=== PATIENT | female | born 2000 ===

== ENCOUNTER 2023-03-01 13:06 | Outpatient (REF) | payer OTHER, SELFPAY ==
[2023-03-01 13:57] LABS: Hematocrit 35.5 % (37.0-47.0); Hemoglobin 11.5 g/dl (12.0-16.0); Mean Corpuscular HGB Conc 32.4 g/dl (31.0-35.0); Mean Corpuscular Hemoglobin 25.2 pg (27.0-33.0); Mean Corpuscular Volume 77.7 fL (80.0-98.0); Mean Platelet Volume 9.6 fL (9.4-12.3); Platelet Count 439 X10*3/uL (160-400); Red Blood Count 4.57 X10*6/uL (4.20-5.50); Red Cell Distribution Width 13.4 % (11.0-16.0); White Blood Count 20.7 X10*3/uL (4.8-10.8)
[2023-03-01 14:51] LABS: Ferritin 20 ng/mL (10-122)
[2023-03-01 14:54] LABS: Anion Gap 16 (12-20); Erythrocyte Sedimentation Rate 18 MM/HR (0-20)
[2023-03-01 14:55] LABS: Folate 8.4 ng/mL (> or = 4.0); Vitamin B12 484 pg/mL (200-900)
[2023-03-01 15:00] LABS: Alanine Aminotransferase 27 U/L (0-31); Albumin Level 4.3 g/dL (3.5-5.0); Alkaline Phosphatase 62 U/L (39-117); Aspartate Amino Transferase 24 U/L (5-31); Bilirubin Total 0.3 mg/dL (0.0-1.0); Blood Urea Nitrogen 15 mg/dL (9-16); C Reactive Protein < 0.10 mg/dL (< or = 0.50); Calcium 9.9 mg/dL (8.4-10.2); Carbon Dioxide 22 mmol/L (22-29); Chloride 104 mmol/L (96-108); Estimated Glomerular Filt Rate > 60; Glucose Random 80 mg/dL (60-115); Iron 129 mcg/dL (30-160); Percent Iron Saturation 35 % (15-50); Potassium 3.3 mmol/L (3.3-5.1); Sodium 139 mmol/L (135-145); Total Iron Binding Capacity 371 mcg/dL (228-428); Total Protein 7.9 g/dL (6.5-8.0); Unsaturated Iron Binding 242 ug/dL
[2023-03-01 15:09] LABS: Atypical Lymph Absolute Manual 0.6 x10*3/uL; Atypical Lymphs Percent Manual 3 % (0-6); Band Neutrophils Percent 4 % (3-5); Eosinophils Absolute Manual 0.2 X10*3/uL (0.0-0.4); Eosinophils Percent Manual 1 % (0-4); Lymphocytes Absolute Manual 8.1 X10*3/uL (1.2-4.9); Lymphocytes Percent Manual 39 % (20-40); Monocytes Absolute Manual 0.8 X10*3/uL (0.1-1.2); Monocytes Percent Manual 4 % (2-11); Neutrophils Percent Manual 49 % (45-73)
[2023-03-01 15:10] LABS: Large Platelet PRESENT; Platelet Estimate SLIGHTLY INCREASED (NORMAL); Platelet Morphology Comment NOTED; RBC Morphology NORMAL
[2023-03-02 10:13] LABS: Thyroid Peroxidase Antibodies 1 IU/mL (<9)
== END 2023-03-01 13:07 | disposition home or self-care (01) ==
LOC: HO.LAB 13:06
PROVIDERS: Visit Provider Physician Assistant
DX: Z00.00 Encounter for general adult medical examination without abnormal findings (principal); J03.01 Acute recurrent streptococcal tonsillitis
CPT/HCPCS: 36415; 80053; 82306; 82607; 82728; 82746; 83540; 84443; 85007; 85025; 85027; 85652; 86140; 86376